=== PATIENT | male | born 2000 | race Caucasian/White ===

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

== ENCOUNTER 2018-09-15 14:40 | Emergency (ER) | payer SELFPAY ==
[~2018-09-15] VITALS: Ht 182.9 cm; Wt 74.8 kg
--- NOTE | 2018-09-15 15:22 | NUR ---
Patient given written and verbal discharge instructions. Patient verbalizes understanding of instructions. Patient is ambulatory with steady gait. Refuses offer of jail placement. Patient given list of available shelters in surrounding area. Patient says that he will be with his girlfriend for now after this ER visit.
== END 2018-09-15 15:30 | disposition home or self-care (01) ==
LOC: ER 14:40
DX: R21 Rash and other nonspecific skin eruption (principal); F17.210 Nicotine dependence, cigarettes, uncomplicated; F12.10 Cannabis abuse, uncomplicated; F11.10 Opioid abuse, uncomplicated
CPT/HCPCS: A4663

== ENCOUNTER 2019-09-06 01:25 | Emergency (ER) | payer MEDICAID ==
[~2019-09-06] VITALS: Ht 182.9 cm; Wt 74.8 kg
[2019-09-06] MEDS ORDERED: IBUPROFEN 600 MG TABLET ONE (02:09)
--- NOTE | 2019-09-06 02:11 | NUR ---
Patient discharged to home in stable condition. Written and verbal after care instructions given. Patient verbalizes understanding of instructions. Stressed follow up or return to ER for worsening s/s. Ambulated from ER with stable gait. All belongings with patient.
[2019-09-06 02:12] VITALS: BP 127/78
[2019-09-06] MEDS ORDERED: IBUPROFEN 600 MG TABLET PO ONE (02:15)
== END 2019-09-06 02:13 | disposition home or self-care (01) ==
LOC: ER 01:29
DX: K08.89 Other specified disorders of teeth and supporting structures (principal); R60.0 Localized edema
CPT/HCPCS: A4663

== ENCOUNTER 2023-12-03 02:57 | Emergency (ER) | payer MEDICAID ==
[~2023-12-03] VITALS: Ht 182.9 cm; Wt 90.7 kg
[2023-12-03] MEDS ORDERED: IBUPROFEN 400 MG TABLET ONE (03:30)
[2023-12-03 03:41] VITALS: BP 139/75; TEMP 98.6; O2SAT 98
[2023-12-03] MEDS: IBUPROFEN 400 MG TABLET PO ONE (03:43)
== END 2023-12-03 03:43 | disposition home or self-care (01) ==
LOC: ER 02:58
DX: S61.212A Laceration without foreign body of right middle finger without damage to nail, initial encounter (principal); F17.200 Nicotine dependence, unspecified, uncomplicated; Z98.890 Other specified postprocedural states; Z91.040 Latex allergy status; W26.8XXA Contact with other sharp object(s), not elsewhere classified, initial encounter; Y93.89 Activity, other specified; Y92.89 Other specified places as the place of occurrence of the external cause; Y99.8 Other external cause status
CPT/HCPCS: A4606; A4663

== ENCOUNTER 2023-12-06 08:56 | Emergency (ER) | payer MEDICAID ==
[~2023-12-06] VITALS: Ht 182.9 cm; Wt 89.4 kg
[2023-12-06 09:36] VITALS: BP 133/75; TEMP 98.2; O2SAT 97
== END 2023-12-06 09:37 | disposition home or self-care (01) ==
LOC: ER 08:56
DX: R05.9 Cough, unspecified (principal); F17.200 Nicotine dependence, unspecified, uncomplicated; Z98.890 Other specified postprocedural states; Z60.2 Problems related to living alone; Z91.040 Latex allergy status
CPT/HCPCS: A4606; A4663